=== PATIENT | female | born 1950 | race Two or more races ===

== ENCOUNTER 2020-10-10 13:43 | Outpatient (CLI) | payer MEDICARE, OTHER | END 2020-10-10 15:43 | disposition home or self-care (01) | LOC: PAN 13:43 | DX: R10.9 Unspecified abdominal pain (principal) | CPT/HCPCS: G0463 ==

== ENCOUNTER 2020-10-16 06:20 | Day surgery (SDC) | payer MEDICARE, MEDICAID ==
[2020-10-16] VITALS (9 sets, daily range): BP systolic 104–124; BP diastolic 70–83
[~2020-10-16] VITALS: Ht 153 cm; Wt 65.8 kg
[~2020-10-16 06:20] MED LIST: DICLOFENAC SODI75 MG ORAL; OMEPRAZOLE40 M1 ORAL
[2020-10-16] MEDS ORDERED: Atropine Inj 1mg/10ml Syr IVP PRN (06:30)
[2020-10-16] MEDS ORDERED: Midazolam 2mg/2ml Inj IVP PRN (06:30)
[2020-10-16] MEDS ORDERED: fentaNYL 100 mcg/2 mL IV PRN (06:30)
[2020-10-16] MEDS ORDERED: LR 1000ml 1,000 ML IVLG SCH ×2 (06:30→07:00)
[2020-10-16] MEDS ORDERED: DiphenhydrAMINE 50mg/ml Inj IVP PRN (06:30)
--- NOTE | 2020-10-16 06:32 | Anethesia Preoperative Eval ---
Anesthesia Pre-op PMH/ROS General Date of Evaluation: Oct 16, 2020 Time of Evaluation: 06:29 Anesthesiologist: bonnie ASA Score: ASA 3 Mallampati Score Class I : Soft palate, uvula, fauces, pillars visible Class II: Soft palate, uvula, fauces visible Class III: Soft palate, base of uvula visible Class IV: Only hard plate visible Mallampati Classification: Class II Surgeon: sumi Diagnosis: gerd, colon screening Surgical Procedure: egd/colonoscopy Anesthesia History: none Social History: smoking - nonsmoker Family History: no anesthesia problems Allergies: Coded Allergies: PENICILLINS (Verified Allergy, Unknown, 10/14/20) Medications: see eMAR Patient NPO?: Yes Past Medical History Gastrointestinal/Genitourinary: Reports: other - gastritis, Neurologic/Psychiatric: Reports: depression/anxiety, other - vertigo Endocrine: Reports: other - breast cancer Musculoskeletal/Integumentary: Reports: OA, other - joint pain PSxH Narrative: sinus surgery, total mastectomy Anesthesia Pre-op Phys. Exam Physician Exam Last Vital Signs Date Time Temp Pulse Resp B/P (MAP) Pulse Ox O2 Delivery O2 Flow Rate FiO2 10/16/20 07:22 97.2 77 18 124/78 96 Room Air Constitutional: NAD Neurologic: CN 2-12 intact Cardiovascular: RRR Respiratory: CTA Gastrointestinal: S/NT/ND Airway Exam Mallampati Score: Class II MO: limited Neck: flexible TMD: 2fb ROM: limited Anesthesia Pre-op A/P Labs Microbiology Date/Time Source Procedure Growth Status 10/14/20 11:45 Nasopharynx SARS-CoV-2 RdRp Gene Assay - Final Complete Studies Pre-op Studies: EKG - nsr, low voltage Risk Assessment & Plan Assessment: asa3 Plan: mac Status Change Before Surgery: No Pre-Antibiotics Drug: Fabiola Fajardo MD Oct 16, 2020 06:32
[2020-10-16] MEDS ORDERED: LR 1000ml ONE (07:30)
[2020-10-16] MEDS ORDERED: Atropine Sulfate 0.4mg/ml inj ONE (07:30)
[2020-10-16] MEDS ORDERED: Lidocaine 1% MPF 10mg/ml 5ml ONE (07:30)
[2020-10-16] MEDS ORDERED: AMBIEN10 M1 ORAL (07:34)
[2020-10-16] MEDS ORDERED: LORATADINE10 M1 PO (07:34)
[2020-10-16] MEDS ORDERED: CREON DR 36,001 EACH PO (07:34)
[2020-10-16] MEDS ORDERED: LYRICA50 MG ORAL (07:34)
[2020-10-16] MEDS ORDERED: DRAMAMINE LESS25 MG PO (07:34)
[2020-10-16] MEDS ORDERED: ESCITALOPRAM OXA5 MG PO (07:34)
--- NOTE | 2020-10-16 07:54 | Short Stay Surgery H&P ---
History of Present Illness History of Present Illness Chief Complaint see recent office consult note HPI Hilary Silveira is a 69 year old female who was admitted on for Gerd, Screening Patient History Allergies: Coded Allergies: PENICILLINS (Verified Allergy, Unknown, 10/14/20) Medication History Scheduled Diclofenac Sod* (Voltaren*), 75 MG ORAL BID, (Reported) Escitalopram Oxalate (Escitalopram Oxalate), 10 MG PO DAILY, (Reported) Lipase/Protease/Amylase (Creon Dr 36,000 Units Capsule), 1 EACH PO TIWM, (Reported) Loratadine (Claritin*), 10 MG PO DAILY, (Reported) Omeprazole (Omeprazole), 40 MG ORAL DAILY, (Reported) Pregabalin (Lyrica), 75 MG ORAL DAILY, (Reported) Scheduled PRN Zolpidem Tartrate* (Ambien*), 10 MG ORAL HS PRN for Insomnia, (Reported) Miscellaneous Medications Meclizine Hcl (Dramamine Less Drowsy), 25 MG PO, (Reported) Physical Exam Vital Signs Last Vital Signs Date Time Temp Pulse Resp B/P (MAP) Pulse Ox O2 Delivery O2 Flow Rate FiO2 10/16/20 07:45 Room Air 10/16/20 07:22 97.2 77 18 124/78 96 Plan Attestation Are the patient's medical conditions optimized for surgery? Sotero Lei MD Oct 16, 2020 07:54
--- NOTE | 2020-10-16 07:55 | Pre-Procedure Note/Attestation ---
Pre-Procedure Note/Attestation Complete Prior to Procedure Planned Procedure: not applicable Procedure Narrative: gerd, screening colon Indications for Procedure Pre-Operative Diagnosis: esophagogastroduodenoscopy and colonoscopy Attestation I attest that I discussed the nature of the procedure; its benefits; risks and complications; and alternatives (and the risks and benefits of such al ternatives), prior to the procedure, with the patient (or the patient's legal licensing representative). I attest that, if there was a reasonable possibility of needing a blood transfusion, the patient (or the patient's legal licensing representative) was given the [facility] standardized written summary, pursuant to the [place] Blood Safety Act ([place] Health and Safety Code # 1645, as amended). I attest that I re-evaluated the patient just prior to the surgery and that there has been no change in the patient's H&P, except as documented below: Sotero Lei MD Oct 16, 2020 07:55
--- NOTE | 2020-10-16 08:06 | Endoscopy Procedure Note ---
Endoscopy Procedure Note General Indication for Procedure: screening colon, GERD Procedures Performed: EGD, colonoscopy Operative Findings/Diagnosis: gastritis, hemorrhoids Specimen: yes Pt Tolerated Procedure Well: Yes Estimated Blood Loss: none Anesthesia Anesthesiologist: natalie Anesthesia: MAC Inserted Devices Implant(s) used?: No Quality Quality of Bowel Preparation: Good Did scope reach the cecum?: Yes Was there any complications?: No GI Core Measures 50 yrs or older w/o bx or poly: No 10yrs. F/U recommended: Yes If not recommended, why?: Above average risk 18 years or older w/prev. colo: No Sotero Lei MD Oct 16, 2020 08:06
--- NOTE | 2020-10-16 08:47 | Immediate Post-Op Evaluation ---
Immediate Post-Op Evalulation Immediate Post-Op Evalulation Procedure: egd/colonoscopy w/bx Date of Evaluation: Oct 16, 2020 Time of Evaluation: 08:45 IV Fluids: 700ml lr Blood Products: none Estimated Blood Loss: negligible Blood Pressure Systolic: 104 Blood Pressure Diastolic: 71 Pulse Rate: 97 Respiratory Rate: 18 O2 Sat by Pulse Oximetry: 100 Temperature (Fahrenheit): 97.6 Pain Score (1-10): 0 Nausea: No Vomiting: No Complications none Patient Status: awake, reacts, patent Hydration Status: adequate Drug: Fabiola Fajardo MD Oct 16, 2020 08:47
--- NOTE | 2020-10-16 08:48 | 48 Hour Post Anesthesia Eval ---
Post Anesthesia Evaluation Procedure: egd/colonoscopy w/bx Date of Evaluation: Oct 16, 2020 Time of Evaluation: 08:48 Blood Pressure Systolic: 117 0: 78 Pulse Rate: 88 Respiratory Rate: 18 Temperature (Fahrenheit): 97.6 O2 Sat by Pulse Oximetry: 100 Airway: patent Nausea: No Vomiting: No Pain Intensity: 0 Hydration Status: adequate Cardiopulmonary Status: stable Mental Status/LOC: patient returned to baseline Post-Anesthesia Complications: none Follow-up care needed: N/A Fabiola Garza MD Oct 16, 2020 08:48
--- NOTE | 2020-10-16 11:31 | Procedure Note ---
DATE OF PROCEDURE: 10/16/2020 SURGEON: Sotero Lei MD. REFERRING PHYSICIAN: Dr. Atkins. PROCEDURE: Upper endoscopy with biopsy and colonoscopy with biopsy, snare polypectomy. ANESTHESIA: Per Dr. Martinez. INSTRUMENT: Olympus adult flexible upper endoscope and colonoscope. INDICATION: Screening colonoscopy evaluation, also a history of chronic GERD. REASON FOR PROCEDURE: The procedure, risks, benefits, and possible consequences, including hemorrhage, aspiration, perforation and infection, and alternative treatments, were explained to the patient/legal guardian by Dr. Sotero Lei and the patient/legal guardian understood and accepted these risks. PROCEDURE IN DETAIL: After informed consent was obtained and the patient was adequately sedated, Olympus upper endoscope was advanced from mouth into the second portion of the duodenum and retroflexion was performed in the stomach. The patient has diffuse gastritis. Random biopsies from antrum was obtained to rule out H. pylori infection. The patient has mild atrophic gastritis. GE junction is at 35 cm from the incisors. At this time, the upper endoscope was retrieved and the patient was turned over for colonoscopy. First, rectal examination was performed, which was positive for internal hemorrhoids. Then, the scope was advanced from rectum into the cecum, then subsequently into terminal ileum. Quality of prep overall was good. The patient had total of four polyps, one in the cecum, one in the ascending, and two in transverse. These polyps all were less than 1 cm, two of them were removed with snare polypectomy and the other one with biopsy forceps technique. The patient had some scattered diverticulosis in the left colon. Retroflexion of rectum showed evidence of internal hemorrhoids. SUMMARY OF FINDINGS: 1. Atrophic gastritis, status post biopsy. 2. Total of four colonic polyps removed. See above for details. 3. Internal hemorrhoids. 4. Scattered left-sided diverticulosis. RECOMMENDATIONS: 1. Follow pathology and treat accordingly. 2. Given four polyps, we recommend repeat colonoscopy in three years. I want to thank Dr. Atkins for this kind referral. Sotero Lei M.D. DR: TONIE JOB#: [id number] CC: Dr. Atkins
== END 2020-10-16 09:50 | disposition home or self-care (01) ==
LOC: GAS 06:20
DX: Z12.11 Encounter for screening for malignant neoplasm of colon (principal); K21.9 Gastro-esophageal reflux disease without esophagitis; K29.40 Chronic atrophic gastritis without bleeding; K63.5 Polyp of colon; K64.8 Other hemorrhoids; K57.90 Diverticulosis of intestine, part unspecified, without perforation or abscess without bleeding; Z79.899 Other long term (current) drug therapy; Z88.0 Allergy status to penicillin; F32.9 Major depressive disorder, single episode, unspecified; F41.9 Anxiety disorder, unspecified; M19.90 Unspecified osteoarthritis, unspecified site; Z90.10 Acquired absence of unspecified breast and nipple
CPT/HCPCS: 43239; 45380; 45385; 93005; 94003; J0461; J2704; J7120; U0002; 94150

== ENCOUNTER 2020-10-23 14:03 | Outpatient (CLI) | payer MEDICARE, MEDICAID ==
[~2020-10-23 14:03] MED LIST changes: +AMBIEN10 M1 ORAL; +CREON DR 36,001 EACH PO; +DRAMAMINE LESS25 MG PO; +ESCITALOPRAM OXA5 MG PO; +LORATADINE10 M1 PO; +LYRICA50 MG ORAL
== END 2020-10-23 16:03 | disposition home or self-care (01) ==
LOC: PAN 14:03
DX: R10.9 Unspecified abdominal pain (principal)
CPT/HCPCS: 99212